=== PATIENT | male | born 1950 | race Two or more races ===

== ENCOUNTER 2023-10-28 12:23 | Emergency (ER) | payer OTHER ==
[~2023-10-28] VITALS: Ht 165.1 cm; Wt 72.6 kg
== END 2023-10-28 16:55 | disposition home or self-care (01) ==
LOC: ER 12:23
DX: S01.81XA Laceration without foreign body of other part of head, initial encounter (principal); W19.XXXA Unspecified fall, initial encounter; Y93.89 Activity, other specified; Y92.89 Other specified places as the place of occurrence of the external cause; Y99.8 Other external cause status

== ENCOUNTER 2023-11-03 12:51 | Emergency (ER) | payer OTHER ==
[~2023-11-03] VITALS: Ht 167.6 cm; Wt 68.0 kg
== END 2023-11-03 14:29 | disposition home or self-care (01) ==
LOC: ER 12:53
DX: Z48.02 Encounter for removal of sutures (principal)